=== PATIENT | male | born 1950 | race Caucasian/White ===

== ENCOUNTER 2018-06-21 06:59 | Day surgery (SDC) | payer MEDICARE, MEDICAID ==
[~2018-06-21 06:59] MED LIST: CEFAZOLIN 2 GM/50 ML (PMX) 50 ML IVPB; SOD CHLORIDE 0.9% 1,000 ML IV
[2018-06-21] MEDS ORDERED: CEFAZOLIN 2 GM/50 ML (PMX) 50 ML IVPB (07:00)
[2018-06-21] MEDS ORDERED: SOD CHLORIDE 0.9% 1,000 ML IV (07:00)
[2018-06-21] MEDS ORDERED: LIDOCAINE 100 MG SYRINGE (08:24)
[2018-06-21] MEDS ORDERED: PROPOFOL 20 ML (08:24)
[2018-06-21] MEDS ORDERED: FENTAnyl 50 MCG/ML VIAL ×2 (08:25→08:44)
[2018-06-21] MEDS ORDERED: MIDAZOLAM 1 MG/ML 2 ML INJ (08:25)
[2018-06-21] MEDS ORDERED: ONDANSETRON 4 MG INJ (08:25)
[2018-06-21] MEDS ORDERED: TRIMETHOBENZAMIDE 100 MG/ML VIAL IM (08:30)
[2018-06-21] MEDS ORDERED: LABETALOL HCL 20MG INJ IV (08:30)
[2018-06-21] MEDS ORDERED: hydrALAzine 20 MG INJ IV (08:30)
[2018-06-21] MEDS ORDERED: IPRATROPIUM (NEB) 0.5 MG/2.5 ML AMP HHN (08:30)
[2018-06-21] MEDS ORDERED: DIPHENHYDRAMINE 50 MG INJ IV (08:30)
[2018-06-21] MEDS ORDERED: ALBUTEROL 0.083% (NEB) 2.5 MG/3 ML AMP HHN (08:30)
[2018-06-21] MEDS ORDERED: HYDROmorphONE 1 MG/5 ML IV SYRINGE IV ×3 (08:30)
[2018-06-21] MEDS ORDERED: OXYCODONE/ACETAMINOPHEN (5/325) TAB PO ×2 (08:30)
[2018-06-21] MEDS ORDERED: FENTAnyl 50 MCG/ML VIAL IV ×3 (08:30)
[2018-06-21] MEDS ORDERED: MEPERIDINE 25 MG INJ IV (08:30)
[2018-06-21] MEDS ORDERED: MIDAZOLAM 1 MG/ML 2 ML INJ IV (08:30)
[2018-06-21] MEDS ORDERED: ONDANSETRON 4 MG INJ IV (08:30)
[2018-06-21] MEDS ORDERED: EPHEDrine SULFATE 50 MG/5 ML SYG IV (08:30)
[2018-06-21] MEDS ORDERED: CEFAZOLIN 1 GM INJ (08:46)
[2018-06-21] MEDS ORDERED: NALOXONE (0.4 MG/ML) INJ (08:58)
[2018-06-21] MEDS: LIDOCAINE 2% (MDV) 20 ML INJ (09:00)
[2018-06-21] MEDS ORDERED: HYDROCODONE/APAP (5/325) TAB PO (09:00)
[2018-06-21] MEDS: BUPIVACAINE 0.5% (SDV) 30 ML INJ (09:00)
== END 2018-06-21 10:50 | disposition home or self-care (01) ==
LOC: SDS 06:59
DX: L72.0 Epidermal cyst (principal)
CPT/HCPCS: 14001; 71045; 88307